=== PATIENT | female | born 1995 | race Caucasian/White ===

== ENCOUNTER 2018-09-20 22:24 | Emergency (ER) | payer BC, OTHER ==
[~2018-09-20] VITALS: Ht 162.6 cm; Wt 58.0 kg
[~2018-09-20 22:24] MED LIST: ADV50500 IH; CITA-278 PO; LEVE250T4 PO
[2018-09-20 22:27] VITALS: BP 139/93
[2018-09-21] MEDS ORDERED: ACYC-202 PO (02:17)
[2018-09-21] MEDS ORDERED: CEPH250T PO (02:18)
[2018-09-21] MEDS ORDERED: DOXYCYCLINE 100MG CAPSULE PO STA (02:18)
[2018-09-21] MEDS ORDERED: DOXY100C2 PO (02:20)
[2018-09-24 19:20] LABS: HSV 2 PCR Negative (Negative)
== END 2018-09-21 03:22 | disposition home or self-care (01) ==
LOC: ER 22:26
DX: B00.9 Herpesviral infection, unspecified (principal); J45.909 Unspecified asthma, uncomplicated; Z88.5 Allergy status to narcotic agent; Z88.1 Allergy status to other antibiotic agents; Z79.2 Long term (current) use of antibiotics; Z79.899 Other long term (current) drug therapy; Z90.89 Acquired absence of other organs
CPT/HCPCS: 36415; 86695; 86696; 87252; 87529; 99283